=== PATIENT | male | born 1995 | race Two or more races ===

== ENCOUNTER 2021-01-06 20:43 | Emergency (ER) | payer SELFPAY ==
[~2021-01-06] VITALS: Ht 167.6 cm; Wt 51.1 kg
[2021-01-06 21:34] VITALS: BP 117/67
[2021-01-06] MEDS ORDERED: P50 MT (23:19)
[2021-01-06] MEDS ORDERED: FAMO-135 PO (23:19)
[2021-01-06] MEDS ORDERED: DIPH25CA83 MT (23:19)
[2021-01-06] MEDS ORDERED: DOXY100C2 MT (23:19)
[2021-01-06] MEDS ORDERED: PREDNISONE 20MG TABLET PO ONE (23:30)
[2021-01-06] MEDS ORDERED: FAMOTIDINE 20MG TABLET PO ONE (23:30)
[2021-01-06] MEDS ORDERED: DIPHENHYDRAMINE 25MG CAPSULE PO ONE (23:30)
== END 2021-01-06 23:33 | disposition home or self-care (01) ==
LOC: ER 20:43
DX: L25.8 Unspecified contact dermatitis due to other agents (principal); Z79.899 Other long term (current) drug therapy
CPT/HCPCS: 99284; J7512; Q0163